=== PATIENT | male | born 1980 | race Caucasian/White ===

== ENCOUNTER → 2017-12-03 | Outpatient (CLI) | payer OTHER ==
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
== END ==
LOC: RAD 17:29
PROVIDERS: ATTEND Family Medicine
DX: M21.941 Unspecified acquired deformity of hand, right hand (principal); Y93.89 Activity, other specified
CPT/HCPCS: 73130

== ENCOUNTER 2018-06-09 11:03 | Outpatient (RCR) | payer OTHER | END 2018-09-07 | disposition home or self-care (01) | LOC: LAB 11:03 | PROVIDERS: ATTEND Family Medicine | DX: Z30.8 Encounter for other contraceptive management (principal) | CPT/HCPCS: 89321 ==

== ENCOUNTER 2019-07-26 12:32 | Day surgery (SDC) | payer OTHER ==
[2019-07-26] VITALS (10 sets, daily range): BP systolic 127–142; BP diastolic 70–89
[~2019-07-26 12:32] MED LIST: NF-ESOM40C PO
[2019-07-26] MEDS ORDERED: LACTATED RINGERS 1,000 ML IV ONE (12:35)
[2019-07-26] MEDS ORDERED: LACTATED RINGERS 1,000 ML IV STA (12:40)
[2019-07-26] MEDS ORDERED: HURRICAINE EXT TUBE (BENZOCAINE) XX PRN (12:45)
--- NOTE | 2019-07-26 12:59 | Progress Note-Pre Operative ---
Pre-Operative Progress Note H&P Reviewed The H&P was reviewed, patient examined and no changes noted. Date Seen by Provider: Jul 26, 2019 Time Seen by Provider: 12:55 Date H&P Reviewed: Jul 26, 2019 Time H&P Reviewed: 12:57 Pre-Operative Diagnosis: epigastric abdominal pain, dysphagia ROSI TRUJILLO DO Jul 26, 2019 12:59 POS
[2019-07-26] MEDS ORDERED: MIDAZOLAM 2 MG/2 ML (VERSED) VIAL ONE (13:11)
[2019-07-26] MEDS ORDERED: PROPOFOL INJECTION 50 ML IV ONE (13:11)
--- NOTE | 2019-07-26 13:53 | Progress Note-Post Operative ---
Post-Operative Progess Note Surgeon (s)/Recovery Room Nurse (s) Surgeon ROSI TRUJILLO DO Recovery Room Nurse: na Pre-Operative Diagnosis epigastric abdominal pain, dysphagia Post-Operative Diagnosis gastritis, hiatal hernia Procedure & Operative Findings Date of Procedure 07/26/19 Procedure Performed/Findings EGD with biopsies Anesthesia Type per housing liaison Estimated Blood Loss Estimated blood loss (mL): none Specimens/Packing Specimens Removed biopsies of antrum, GE junction ROSI TRUJILLO DO Jul 26, 2019 13:53 POS
[2019-07-26] MEDS ORDERED: PANT40TA2 PO (14:08)
--- NOTE | 2019-07-26 14:08 | Discharge Inst-Simple/Standard ---
Discharge Inst-Standard Discharge Medications New, Converted or Re-Newed RX: Transmitted to Pharmacy Patient Instructions/Follow Up Plan of Care/Instructions/FU: follow up with jennifer in 2 weeks Activity as Tolerated: Yes Discharge Diet: Regular Diet ROSI TRUJILLO DO Jul 26, 2019 14:08 POS
--- NOTE | 2019-07-26 14:53 | Anesthesia-General Post-Op ---
MAC Patient Condition Mental Status/LOC: Same as Preop Cardiovascular: Satisfactory Nausea/Vomiting: Absent Respiratory: Satisfactory Pain: Controlled Complications: Absent Post Op Complications Complications None Follow Up Care/Instructions Patient Instructions None needed. Anesthesiology Discharge Order Discharge Order Patient is doing well, no complaints, stable vital signs, no apparent adverse anesthesia problems. No complications reported per nursing. SCAR CAMARA CRNA Jul 26, 2019 14:53 POS
--- NOTE | 2019-07-26 22:30 | OPERATIVE REPORT ---
DATE OF SERVICE: 07/26/2019 PREOPERATIVE DIAGNOSES: Dysphagia and epigastric abdominal pain. POSTOPERATIVE DIAGNOSES: Hiatal hernia, gastritis. PROCEDURE: EGD with biopsies. SURGEON: Rosi Buitrago DO ANESTHESIA: Per WATER SOFTENER SERVICER AND INSTALLER. ESTIMATED BLOOD LOSS: None. COMPLICATIONS: None. INDICATIONS: The patient is a 38-year-old male with epigastric abdominal pain and dysphagia. He was started on Nexium, which did have some improvement. He is still having some symptoms; however, he understands risks and benefits of procedure and wished to proceed with procedure. Consent was signed in the chart. DESCRIPTION OF PROCEDURE: The patient was taken to the endoscopy suite, placed in the left lateral recumbent position. Timeout was performed. Scope was inserted in mouth, down the esophagus, stomach and into the duodenum without difficulty. There were no polyps, mass or ulcerations within the duodenum. Scope was slowly retracted back into the stomach where it had some erythematous changes consistent with gastritis. Biopsy of the antrum was obtained. Scope was retroflexed noting a hiatal hernia, no other pathology noted. Scope was returned to its normal position; slowly withdrawn to the distal esophagus, biopsy of GE junction was obtained. Scope was then slowly retracted back noting no other pathology. The patient tolerated procedure well without any complications, taken to recovery room in stable condition. RECOMMENDATIONS: The patient will follow up in the office in two to three weeks to discuss pathology results. We will change Nexium to Protonix to see if any further improvement. Any change in condition, she should be reevaluated at that time, otherwise follow up as scheduled appointment. Further recommendations pending pathology results. Job ID: [id number] DocumentID: [id number] Dictated Date: 07/26/2019 14:09:52 Stump Shooter Date: 07/26/2019 22:28:40 Dictated By: ROSI BUITRAGO DO
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
--- OUTSIDE RECORDS SUMMARY | 2019-08-20 18:43 | XMS REPORT ---
Author Author Eric Braden [facility] Address [address] [place], [place] [id number] Care Team Providers Care Finished Stock Inspector Name Role Phone Sherice Braden PCP Unavailable Allergies and Adverse Reactions Name Reaction Notes No known drug allergy Plan of Treatment Not available. Medications Not available. Problem List Not available. Vital Signs Date Time BP-Sys(mm[Hg] BP-Milady(mm[Hg]) HR(bpm) RR(rpm) Temp WT HT HC BMI BSA BMI Percentile O2 Sat(%) 03/26/2017 8:19:00 AM 121 mmHg 66 mmHg 57 bpm 18 rpm 97.3 F 189.5 lbs 70 in 27.19 kg/m2 2.06 m2 98 % Social History Name Description Comments Alcohol Light Tobacco Never smoker History of Procedures Date Ordered Description Order Status 03/26/2017 8:36 AM URINALYSIS AUTO W/O SCOPE Reviewed Results Summary Date and Description Results 03/26/2017 8:36 AM Clarity Ur clear Color Ur ye llow Glucose Ur-sCnc neg Bilirub Ur Ql Strip neg Ketones Ur Ql Strip neg Sp Gr Ur Qn 1.005 Hgb Ur Ql Strip neg pH Ur-LsCnc 6.0 Prot Ur Ql Strip neg Urobilinogen Ur-mCnc 0.2eu/dl Nitrite Ur Ql Strip neg WBC Est Ur Ql Strip neg History Of Immunizations Not available. 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
== END 2019-07-26 14:40 | disposition home or self-care (01) ==
LOC: ENDO 12:32
PROVIDERS: ATTEND Surgery
DX: K29.70 Gastritis, unspecified, without bleeding (principal); K20.9 Esophagitis, unspecified; K44.9 Diaphragmatic hernia without obstruction or gangrene; R13.10 Dysphagia, unspecified; Z79.899 Other long term (current) drug therapy; Z98.52 Vasectomy status; Z90.89 Acquired absence of other organs; Z80.9 Family history of malignant neoplasm, unspecified; Z82.49 Family history of ischemic heart disease and other diseases of the circulatory system
CPT/HCPCS: 88305

== ENCOUNTER 2020-01-17 09:06 | Outpatient (RCR) | payer OTHER ==
[~2020-01-17] VITALS: Ht 177 cm; Wt 86.3 kg
[~2020-01-17 09:06] MED LIST changes: +PANT40TA2 PO
== END 2020-01-17 15:48 | disposition home or self-care (01) ==
LOC: PREOP 09:06
PROVIDERS: ATTEND Podiatrist Foot & Ankle Surgery
DX: Z01.818 Encounter for other preprocedural examination (principal); Z11.59 Encounter for screening for other viral diseases
CPT/HCPCS: 87635

== ENCOUNTER 2020-02-05 10:52 | Emergency (ER) | payer OTHER ==
[~2020-02-05] VITALS: Ht 177.8 cm; Wt 89.0 kg
[~2020-02-05 10:52] MED LIST changes: +CEPH500C PO; +HYDR-83 PO
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
--- NOTE | 2020-02-05 12:27 | ED Lower Extremity ---
General Chief Complaint: Lower Extremity Stated Complaint: POST OP/R LEG AND FOOT DISCOLORATION/PAIN Nursing Triage Note: AMB TO ROOM WITH CRUTCHES HAD FOOT SURG BY DR REYNOSO 2 WEEKS AGO CHANGED HIS DRESSNG ON THURSDAY PLACED COBAN OVER DERSSING. LAST NIGHT FOOT AND LEG STARTED TO FEEL COOL AND WAS DISCOLORED UP LEG. REPORTS TOOK COBAN OFF AND COLOR RETURNED TO LEG. LEG CON'T TO FEEL COOL. ON ADMIT NO DISCOLORATION LEG COOL TO TOUCH BUT GOOD SENSATION Nursing Sepsis Screen: No Definite Risk Source: patient Exam Limitations: no limitations History of Present Illness Date Seen by Provider: Feb 05, 2020 Time Seen by Provider: 11:57 Initial Comments Here with report of right calf pain and cramping and right foot numbness concerns for blood clots. Had surgery on his foot first metatarsal area distally about 2 weeks ago. Had sutures out a few days ago and had a dressing in place with Coban. The Coban may have been on a little tight. When he got up this morning and went to shower he noted that the foot was dark red/purple. After he remove the Coban and and dressing, but returned to normal color. Has had Cramping and is worried about blood clots after surgery. No significant swelling of the right calf noted. Denies fever or chills. Denies other concerns. Onset: this morning Severity: moderate Pain/Injury Location: right leg, right foot Method of Injury: other (status post surgery) Modifying Factors: Improves With Immobilization, Improves With Movement, Improves With Rest Allergies and Home Medications Allergies Coded Allergies: No Known Drug Allergies (Verified , 01/12/20) Home Medications Cephalexin 500 Mg Capsule, 1 CAP PO TID Prescribed by: JAIMEE REYNOSO on 01/20/20 1031 Hydrocodone/Acetaminophen 1 Each Tablet, 1 EACH PO Q4H PRN for PAIN-MODERATE (5- 7) Prescribed by: JAIMEE REYNOSO on 01/20/20 1031 Pantoprazole Sodium 40 Mg Tablet., 40 MG PO DAILY Prescribed by: ROSI TRUJILLO on 07/26/19 6578 Patient Home Medication List Home Medication List Reviewed: Yes Review of Systems Constitutional: see HPI; No chills, No fever Respiratory: no symptoms reported Cardiovascular: no symptoms reported Musculoskeletal: see HPI, muscle pain, muscle stiffness, muscle cramps Skin: change in color, lesions (postoperative lesion to the bottom of the foot at the MTP area) Psychiatric/Neurological: Paresthesia, Tingling Past Dasnzlk-Uieqyi-Vjzfxy Hx Past Med/Social Hx: Reviewed Nursing Past Med/Soc Hx Patient Social History Alcohol Use: Occasionally Uses Number of Drinks Today: GG Alcohol Beverage of Choice: Beer, Whiskey Recreational Drug Use: No Smoking Status: Never a Smoker Former Smoker, Quit: January 12, 2000 2nd Hand Smoke Exposure: No Recent Foreign Travel: No Contact w/Someone Who Travel: No Recent Infectious Disease Expo: No Recent Hopitalizations: No Immunizations Up To Date PED Vaccines UTD: No Date of Pneumonia Vaccine: May 31, 2018 Date of Influenza Vaccine: May 24, 2019 Seasonal Allergies Seasonal Allergies: Yes Past Medical History Surgeries: Yes (bilat ing hernia, cyst from neck, left knee scope x2, R elbow scope, SEPTOP) Adenoidectomy, Appendectomy, Tonsillectomy, Vasectomy Respiratory: No Currently Using CPAP: No Currently Using BIPAP: No Cardiac: No Neurological: No Sexually Transmitted Disease: No HIV/AIDS: No Genitourinary: No Gastrointestinal: Yes Gastroesophageal Reflux Musculoskeletal: No Endocrine: No HEENT: Yes (GLASSES/CONTACTS) Cancer: No Psychosocial: No Integumentary: No Blood Disorders: No Adverse Reaction/Blood Tranf: No (N/A) Family Medical History Reviewed Nursing Family Hx Physical Exam Vital Signs Vital Signs - First Documented 02/05/20 11:41 Temp 36.7 Pulse 73 Resp 18 B/P (MAP) 143/87 (105) Pulse Ox 97 O2 Delivery Room Air Capillary Refill : Less Than 3 Seconds Height, Weight, BMI Height: '" Weight: lbs. oz. kg; 28.00 BMI Method: General Appearance: WD/WN, no apparent distress Cardiovascular: regular rate, rhythm, no murmur Respiratory: lungs clear, normal breath sounds Gastrointestinal: non tender, soft Legs: bilateral leg non-tender, bilateral leg normal range of motion, bilateral leg other (no difference in size between the right and left calf. Overall soft bilateral.) Feet: right foot other (postoperative wound to the bottom of the right foot at the MTP. Cap refill less than 3 seconds to all toes of the right foot. No signs of infection.) Neurologic/Psychiatric: alert, oriented x 3 Skin: normal color, warm/dry Progress/Results/Core Measures Results/Orders Lab Results Laboratory Tests Test 02/05/20 12:25 Range/Units White Blood Count 6.7 4.3-11.0 10^3/uL Red Blood Count 4.78 4.35-5.85 10^6/uL Hemoglobin 14.6 13.3-17.7 G/DL Hematocrit 42 40-54 % Mean Corpuscular Volume 87 80-99 FL Mean Corpuscular Hemoglobin 31 25-34 PG Mean Corpuscular Hemoglobin Concent 35 32-36 G/DL Red Cell Distribution Width 12.6 10.0-14.5 % Platelet Count 154 130-400 10^3/uL Mean Platelet Volume 10.3 7.4-10.4 FL Neutrophils (%) (Auto) 53 42-75 % Lymphocytes (%) (Auto) 30 12-44 % Monocytes (%) (Auto) 13 H 0-12 % Eosinophils (%) (Auto) 4 0-10 % Basophils (%) (Auto) 0 0-10 % Neutrophils # (Auto) 3.6 1.8-7.8 X 10^3 Lymphocytes # (Auto) 2.0 1.0-4.0 X 10^3 Monocytes # (Auto) 0.9 0.0-1.0 X 10^3 Eosinophils # (Auto) 0.3 0.0-0.3 10^3/uL Basophils # (Auto) 0.0 0.0-0.1 10^3/uL Sodium Level 137 135-145 MMOL/L Potassium Level 4.3 3.6-5.0 MMOL/L Chloride Level 104 98-107 MMOL/L Carbon Dioxide Level 20 L 21-32 MMOL/L Anion Gap 13 5-14 MMOL/L Blood Urea Nitrogen 17 7-18 MG/DL Creatinine 1.08 0.60-1.30 MG/DL Estimat Glomerular Filtration Rate > 60 BUN/Creatinine Ratio 16 Glucose Level 86 70-105 MG/DL Calcium Level 9.7 8.5-10.1 MG/DL Corrected Calcium 8.5-10.1 MG/DL Total Bilirubin 0.7 0.1-1.0 MG/DL Aspartate Amino Transf (AST/SGOT) 48 H 5-34 U/L Alanine Aminotransferase (ALT/SGPT) 102 H 0-55 U/L Alkaline Phosphatase 48 40-136 U/L Total Protein 7.2 6.4-8.2 GM/DL Albumin 4.7 H 3.2-4.5 GM/DL My Orders Orders - ANILA BROWN MD Cbc With Automated Diff (02/05/20 12:03) Comprehensive Metabolic Panel (02/05/20 12:03) Enoxaparin Injection (Lovenox Injection) (02/05/20 12:30) Vital Signs/I&O 02/05/20 11:41 Temp 36.7 Pulse 73 Resp 18 B/P (MAP) 143/87 (105) Pulse Ox 97 O2 Delivery Room Air Blood Pressure Mean: 105 Progress Progress Note : Progress Note Seen and evaluated. We will check basic labs to evaluate for infection and kidney function. Ultrasound not available today so we will order that first worsening tomorrow. We did discuss risk and benefits of anticoagulation given risk of DVT status post surgery. He would like to initiate anticoagulation pending ultrasound. Ultrasound right lower extremity ordered for tomorrow. We will give single dose of Lovenox 1.5 mg/kg subcutaneous if kidney function is okay. Monitor patient. 1312: Renal function is normal. Lovenox 130 mg subcutaneous ordered. Patient will get outpatient ultrasound tomorrow. Discharged home with return precautions. Patient verbalize understanding instructions and agreement with plan. Departure Impression Primary Impression: Right calf pain Disposition: 01 HOME, SELF-CARE Condition: Stable Departure-Patient Inst. Decision time for Depature: 13:14 Referrals: ENRIQUE ROBERTS MD (PCP/Family) Primary Care Physician Patient Instructions: Deep Vein Thrombosis (Blood Clots in the Legs) (DC) Add. Discharge Instructions: All discharge instructions reviewed with patient and/or family. Voiced understanding. Follow-up tomorrow for ultrasound. He will return to the hospital to the outpatient registration and sign in for ultrasound first thing in the morning. Outpatient registration should be open at 7:30 in the morning and ultrasound of 8 AM. You should be here at sometime between 7:30 and 8 AM to register for the ultrasound first thing in the morning. Those results will be given to the ER d jade salesperson children's shoes and he will be called if you need further treatment. You should also follow up with Dr. Reynoso for recheck and further evaluation. Return for worse pain, swelling, weakness, breathing problems or other concerns as needed. Copy Copies To 1: EDGARDO,ANILA HAHN DPM, MD Feb 05, 2020 12:27
[2020-02-05] MEDS ORDERED: ENOXAPARIN 60 MG/0.6 ML (LOVENOX) SYR SC ONE (12:30)
[2020-02-05 12:34] LABS: BASOPHILS % (AUTO) 0 % (0-10); EOSINOPHILS # (AUTO) 0.3 10^3/uL (0.0-0.3); EOSINOPHILS % (AUTO) 4 % (0-10); HEMATOCRIT 42 % (40-54); HEMOGLOBIN 14.6 G/DL (13.3-17.7); LYMPHOCYTES % (AUTO) 30 % (12-44); MEAN CORPUSCULAR HEMOGLOBIN 31 PG (25-34); MEAN CORPUSCULAR HGB CONC 35 G/DL (32-36); MEAN CORPUSCULAR VOLUME 87 FL (80-99); MEAN PLATELET VOLUME 10.3 FL (7.4-10.4); MONOCYTES # (AUTO) 0.9 X 10^3 (0.0-1.0); MONOCYTES % (AUTO) 13 % (0-12); NEUTROPHILS # (AUTO) 3.6 X 10^3 (1.8-7.8); NEUTROPHILS % (AUTO) 53 % (42-75); PLATELET COUNT 154 10^3/uL (130-400); RED CELL DISTRIBUTION WIDTH 12.6 % (10.0-14.5); WHITE BLOOD COUNT 6.7 10^3/uL (4.3-11.0)
[2020-02-05 12:51] LABS: ALANINE AMINOTRANSFERASE 102 U/L (0-55); ALBUMIN 4.7 GM/DL (3.2-4.5); ALKALINE PHOSPHATASE 48 U/L (40-136); BILIRUBIN,TOTAL 0.7 MG/DL (0.1-1.0); BUN/CREATININE RATIO 16; CALCIUM 9.7 MG/DL (8.5-10.1); CARBON DIOXIDE 20 MMOL/L (21-32); CHLORIDE 104 MMOL/L (98-107); CREATININE SERUM 1.08 MG/DL (0.60-1.30); GFR ESTIMATED > 60; GLUCOSE 86 MG/DL (70-105); POTASSIUM 4.3 MMOL/L (3.6-5.0); SODIUM 137 MMOL/L (135-145); TOTAL PROTEIN 7.2 GM/DL (6.4-8.2)
[2020-02-05] MEDS ORDERED: ENOXAPARIN 300 MG/3 ML (LOVENOX) MULTI-DOSE VIAL SQ NR (13:13)
[2020-02-05 13:31] VITALS: BP 139/108
[2020-02-06] MEDS ORDERED: APIX5TAB PO (11:46)
[2020-02-06] MEDS ORDERED: HYDR-3870 PO (11:48)
== END 2020-02-05 13:31 | disposition home or self-care (01) ==
LOC: EDUNIT# 10:52 → ER 10:53
DX: M79.661 Pain in right lower leg (principal); K21.9 Gastro-esophageal reflux disease without esophagitis; Z98.890 Other specified postprocedural states; Z87.891 Personal history of nicotine dependence
CPT/HCPCS: 36415; 80053; 85025

== ENCOUNTER 2020-02-06 10:13 | Emergency (ER) | payer OTHER ==
[~2020-02-06] VITALS: Ht 177.8 cm; Wt 86.2 kg
[~2020-02-06 10:13] MED LIST changes: -APIX5TAB PO; -HYDR-3870 PO
--- NOTE | 2020-02-06 10:37 | ED Lower Extremity ---
General Chief Complaint: Lower Extremity Stated Complaint: R FOOT PAIN Source: patient Exam Limitations: no limitations History of Present Illness Date Seen by Provider: Feb 06, 2020 Time Seen by Provider: 10:32 Initial Comments To ER with right foot/lower leg pain. He was seen here yesterday for the same. At the end of December he had surgery on his right foot for a dislocated sesamoid bone. He been doing fine until yesterday when he awakened with swelling of the foot and leg. However he have the Coban wrap on very tightly for about 2-3 days. That was removed and the swelling went down overnight. He had a right lower extremity venous ultrasound today which did NOT show any evidence of clot DVT. However he still has a cool tingly sensation in the right foot. Onset: yesterday Severity: moderate Pain/Injury Location: right leg Method of Injury: unknown Allergies and Home Medications Allergies Coded Allergies: No Known Drug Allergies (Verified , 01/12/20) Home Medications Apixaban 5 Mg Tablet, 10 MG PO BID Prescribed by: MOSHE PADRON on 02/06/20 1146 Cephalexin 500 Mg Capsule, 1 CAP PO TID Prescribed by: JAIMEE REYNOSO on 01/20/20 1031 Hydrocodone/Acetaminophen 1 Each Tablet, 1 EACH PO Q4H PRN for PAIN-MODERATE (5- 7) Prescribed by: JAIMEE REYNOSO on 01/20/20 1031 Hydrocodone/Acetaminophen 1 Each Tablet, 1 EACH PO Q4-6HR PRN for PAIN-MODERATE Prescribed by: MOSHE PADRON on 02/06/20 1149 Pantoprazole Sodium 40 Mg Tablet.dr, 40 MG PO DAILY Prescribed by: ROSI TRUJILLO on 07/26/19 1408 Patient Home Medication List Home Medication List Reviewed: Yes Review of Systems Constitutional: see HPI EENTM: see HPI Respiratory: no symptoms reported Cardiovascular: no symptoms reported Genitourinary: no symptoms reported Musculoskeletal: no symptoms reported Skin: no symptoms reported Psychiatric/Neurological: No Symptoms Reported Past Nkuoqpp-Fmeogz-Qbjlwk Hx Patient Social History Alcohol Beverage of Choice: Beer, Whiskey Former Smoker, Quit: January 12, 2000 2nd Hand Smoke Exposure: No Recent Hopitalizations: No Immunizations Up To Date PED Vaccines UTD: No Date of Pneumonia Vaccine: May 31, 2018 Date of Influenza Vaccine: May 24, 2019 Seasonal Allergies Seasonal Allergies: Yes Past Medical History Surgeries: Yes (bilat ing hernia, cyst from neck, left knee scope x2, R elbow scope, SEPTOP) Adenoidectomy, Appendectomy, Tonsillectomy, Vasectomy Respiratory: No Currently Using CPAP: No Currently Using BIPAP: No Cardiac: No Neurological: No Sexually Transmitted Disease: No HIV/AIDS: No Genitourinary: No Gastrointestinal: Yes Gastroesophageal Reflux Musculoskeletal: No Endocrine: No HEENT: Yes (GLASSES/CONTACTS) Cancer: No Psychosocial: No Integumentary: No Blood Disorders: No Adverse Reaction/Blood Tranf: No (N/A) Physical Exam Vital Signs Capillary Refill : Height, Weight, BMI Height: '" Weight: lbs. oz. kg; 28.00 BMI Method: General Appearance: WD/WN, no apparent distress HEENT: PERRL/EOMI, normal ENT inspection Respiratory: no respiratory distress, no accessory muscle use Hips: bilateral hip non-tender, bilateral hip normal inspection, bilateral hip normal range of motion Legs: bilateral leg non-tender, bilateral leg normal inspection, bilateral leg normal range of motion, bilateral leg other (there is questionable discoloration is a bit of erythema to the right leg at this time. He does have a picture that he took at home with both feet [id number] and the right leg was certainly more purplish red than the left. However that is not the case currently. Both legs are cool to touch but with brisk capillary refill of the toes and a 2+ and strength dorsalis pedis pulse on each foot. The incision to the plantar surface of the forefoot on the right is intact with minimal bruising around it and no erythema or drainage. I do not find any alarming findings on clinical exam.) Knees: bilateral knee non-tender, bilateral knee normal inspection, bilateral knee normal range of motion Ankles: bilateral ankle non-tender, bilateral ankle normal inspection Feet: bilateral foot non-tender, bilateral foot normal inspection, bilateral foot normal range of motion Neurologic/Psychiatric: alert, normal mood/affect, oriented x 3 Skin: normal color, warm/dry Progress/Results/Core Measures Results/Orders My Orders Orders - MOSHE PADRON APRN Us Right Low Ext [id number] (02/06/20 10:38) Diagnostic Imaging Diagonstic Imaging: Ultrasound Comments [facility], [place] NAME: BECKY GRAY [facility] REC#: [id number] PT STATUS: REG CLI : 1980 PHYSICIAN: ANILA BROWN MD ADMIT DATE: 02/06/20/RAD Signed Date of Exam:02/06/20 US VENOUS LOWER EXT RT INDICATION: Two weeks postoperative foot surgery. Discoloration. Calf pain. TECHNIQUE: Grayscale with color-flow and Doppler waveform evaluation of the right lower extremity deep venous system. CORRELATION STUDY: None FINDINGS: Color and grayscale sonographic images demonstrate no intraluminal defect within the visualized portion of the common femoral, superficial femoral and/or popliteal veins to suggest thrombus formation. These vessels demonstrate normal response to compression and augmentation. The peroneal veins in the calf were not able to be visualized. No soft tissue fluid collection. IMPRESSION: 1. Negative for deep venous thrombosis of the right leg. Dictated by: Dictated on workstation # [id number] Dict: 02/06/20 1003 Trans: 02/06/20 1030 DO [id number] Interpreted by: SHEBA HOGAN DO Electronically signed by: SHEBA HOGAN DO 02/06/20 1030 Departure Communication (Admissions) Question a reflex sympathetic dystrophy ?? (potentially from the coban being so tight for 2-3 days) 1132-from arterial ultrasound, no evidence of clot within the arterial system on ultrasound which is supported by physical exam. However they were able to visualize the peroneal vein which was not able to be visualized on the venous ultrasound this morning. There is a clot within the peroneal vein. Impression Primary Impression: DVT (deep venous thrombosis) Additional Impression: Complex regional pain syndrome Disposition: HOME, SELF-CARE Condition: Stable Departure-Patient Inst. Decision time for Depature: 10:45 Referrals: ENRIQUE CANCHOLA MD (PCP/Family) Primary Care Physician Patient Instructions: Deep Vein Thrombosis (Blood Clots in the Legs) (DC) Add. Discharge Instructions: 1. You do have a small clot in the peroneal vein of your right lower leg. My suspicion is that there may also be a complex regional pain syndrome which is the result of a nerve injury possibly from the Coban wrap being on so tightly for 2-3 days. This can cause tingling and discoloration and coolness intermitten tly of the affected body part. Dr. Reynoso will see you today at 4 PM. Anticoagulants as directed. He will need to be on these for a couple of months, I have written you for 7 days worth, after that the dosage changes and Dr. Canchola or Dr. Reynoso can prescribe that for you All discharge instructions reviewed with patient and/or family. Voiced understanding. Scripts Hydrocodone/Acetaminophen (Lorcet 5-325 mg Tablet) 1 Each Tablet 1 EACH PO Q4-6HR PRN for PAIN-MODERATE MDD 10 for 7 Days, #10 TAB Prov: MOSHE PADRON APRN 02/06/20 Apixaban (Eliquis) 5 Mg Tablet 10 MG PO BID, #28 TAB Prov: MOSHE PADRON APRN 02/06/20 Copy Copies To 1: ENRIQUE CANCHOLA MD; JAIMEE REYNOSO DPM, PETER J APRN Feb 06, 2020 10:37
[2020-02-06] MEDS ORDERED: APIX5TAB PO (11:46)
[2020-02-06] MEDS ORDERED: HYDR-3870 PO (11:48)
--- NOTE | 2020-02-06 11:54 | Diagnostic Imaging Report ---
INDICATION: Right foot pain. EXAMINATION: Grayscale, color-flow and duplex Doppler evaluation of right lower extremity arterial system was performed. FINDINGS: There is triphasic waveforms within the right common femoral, superficial femoral and popliteal arteries. Biphasic waveforms within the posterior tibial artery is noted with triphasic waveforms in the dorsalis pedis. Velocities are normal. No high-grade stenosis or occlusion is identified. Note is made of a thrombus noted within peroneal veins of the calf. No fluid collections are identified. IMPRESSION: 1. Unremarkable right lower extremity arterial Doppler. 2. Peroneal vein thrombosis. Dictated by: Dictated on workstation # [id number]
[2020-02-06 12:00] VITALS: BP 146/92
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
== END 2020-02-06 12:00 | disposition home or self-care (01) ==
LOC: EDUNIT# 10:13 → ER 10:14
DX: I82.451 Acute embolism and thrombosis of right peroneal vein (principal); G90.521 Complex regional pain syndrome I of right lower limb; K21.9 Gastro-esophageal reflux disease without esophagitis; Z79.01 Long term (current) use of anticoagulants
CPT/HCPCS: 93926

== ENCOUNTER → 2020-02-06 | Outpatient (CLI) | payer OTHER ==
[~2020-02-06] MED LIST changes: +APIX5TAB PO; +HYDR-3870 PO
--- NOTE | 2020-02-06 10:32 | Diagnostic Imaging Report ---
INDICATION: Two weeks postoperative foot surgery. Discoloration. Calf pain. TECHNIQUE: Grayscale with color-flow and Doppler waveform evaluation of the right lower extremity deep venous system. CORRELATION STUDY: None FINDINGS: Color and grayscale sonographic images demonstrate no intraluminal defect within the visualized portion of the common femoral, superficial femoral and/or popliteal veins to suggest thrombus formation. These vessels demonstrate normal response to compression and augmentation. The peroneal veins in the calf were not able to be visualized. No soft tissue fluid collection. IMPRESSION: 1. Negative for deep venous thrombosis of the right leg. Dictated by: Dictated on workstation # [id number]
== END ==
LOC: RAD 07:57
PROVIDERS: ATTEND Emergency Medicine
DX: M79.661 Pain in right lower leg (principal); Z98.890 Other specified postprocedural states

== ENCOUNTER 2022-04-28 20:52 | Observation (INO) | payer OTHER ==
[~2022-04-28] VITALS: Ht 177.8 cm; Wt 89.5 kg
[~2022-04-28 20:52] MED LIST changes: +ACHD5005 PO; +APIX5TAB PO; +HYDR-3870 PO; -HYDR-83 PO
[2022-04-28 21:15] LABS: BASOPHILS % (AUTO) 0 % (0-10); EOSINOPHILS # (AUTO) 0.2 10^3/uL (0.0-0.3); EOSINOPHILS % (AUTO) 3 % (0-10); HEMATOCRIT 42 % (40-54); HEMOGLOBIN 15.4 g/dL (13.3-17.7); LYMPHOCYTES % (AUTO) 48 % (12-44); MEAN CORPUSCULAR HEMOGLOBIN 33 pg (25-34); MEAN CORPUSCULAR HGB CONC 37 g/dL (32-36); MEAN CORPUSCULAR VOLUME 89 fL (80-99); MEAN PLATELET VOLUME 10.3 fL (9.0-12.2); MONOCYTES # (AUTO) 0.7 10^3/uL (0.0-1.0); MONOCYTES % (AUTO) 8 % (0-12); NEUTROPHILS # (AUTO) 3.3 10^3/uL (1.8-7.8); NEUTROPHILS % (AUTO) 40 % (42-75); PLATELET COUNT 179 10^3/uL (130-400); WHITE BLOOD COUNT 8.2 10^3/uL (4.3-11.0)
[2022-04-28 21:23] LABS: CHLORIDE 102 MMOL/L (98-107); POTASSIUM 3.5 MMOL/L (3.6-5.0); SODIUM 141 MMOL/L (135-145)
[2022-04-28 21:24] LABS: CALCIUM 10.2 MG/DL (8.5-10.1); INR 0.9 (0.8-1.4); PROTHROMBIN TIME PATIENT 12.5 SEC (12.2-14.7)
[2022-04-28 21:25] LABS: GLUCOSE 152 MG/DL (70-105)
[2022-04-28 21:26] LABS: TOTAL PROTEIN 8.2 GM/DL (6.4-8.2)
[2022-04-28 21:27] LABS: BILIRUBIN,TOTAL 0.5 MG/DL (0.1-1.0); CARBON DIOXIDE 21 MMOL/L (21-32)
[2022-04-28 21:29] LABS: ALKALINE PHOSPHATASE 66 U/L (40-136); CREATININE SERUM 1.15 MG/DL (0.60-1.30); GFR ESTIMATED 81
[2022-04-28 21:30] LABS: BUN/CREATININE RATIO 14
--- NOTE | 2022-04-28 21:30 | ED Chest Pain ---
General Chief Complaint: Chest Pain Stated Complaint: CHEST PAIN, SOB Nursing Triage Note: PT AMB TO [facility] 3 WITH C/O CP X2 HOURS THAT HAS BEEN CONSTANT AND HE SAID HE IS FEELING PALPITATIONS AND INCREASED SOB. PT STATES HE WAS WATCHING TV WHEN IT CAME ON Source: patient Exam Limitations: no limitations History of Present Illness Date Seen by Provider: Apr 28, 2022 Time Seen by Provider: 20:59 Initial Comments This 41-year-old gentleman presents to the emergency room with fairly abrupt onset of chest tightness and pressure at approximately 1900. His significant ot her checked his blood pressure and noted a significant hypertension. Heart rate was also in the 90s at rest which is unusual for him. He felt palpitations at the time. He reports having multiple prior episodes of lesser intensity and brief duration over the past couple of months. This episode made him nervous because it was unrelenting. He was watching TV at the time. He did not identify any alleviating or exacerbating factors. Associated symptoms included palpitations, shakiness, shortness of air, and diaphoresis. He does admit to drinking hard liquor this holiday weekend including a half a bottle (1/5 liter) of tequila yesterday. He typically drinks about 2 days/week on weekends, and sometimes excessively. He has no known heart disease but does have untreated hypertension. Pain was 4/10 on arrival. He is a non-smoker. He reports family history of heart disease in his grandfather. His mother and father have hypertension. He denies any prior cardiac work-up. Allergies and Home Medications Allergies Coded Allergies: No Known Drug Allergies (Verified , 01/12/20) Patient Home Medication List Home Medication List Reviewed: Yes Apixaban (Eliquis) 5 Mg Tablet, 10 MG PO BID Prescribed by: MOSHE PADRON on 02/06/20 1146 Cephalexin (Cephalexin) 500 Mg Capsule, 1 CAP PO TID Prescribed by: JAIMEE REYNOSO on 01/20/20 1031 Hydrocodone/Acetaminophen (Hydrocodone-Acetamin 5-325 mg) 1 Each Tablet, 1 EACH PO Q4H PRN for PAIN-MODERATE (5-7) Prescribed by: JAIMEE REYNOSO on 01/20/20 1031 Hydrocodone/Acetaminophen (Lorcet 5-325 mg Tablet) 1 Each Tablet, 1 EACH PO Q4- 6HR PRN for PAIN-MODERATE Prescribed by: MOSHE PADRON on 02/06/20 1149 Pantoprazole Sodium (Protonix) 40 Mg Tablet.dr, 40 MG PO DAILY Prescribed by: ROSI TRUJILLO on 07/26/19 1408 Review of Systems Review of Systems Constitutional: see HPI, diaphoresis EENTM: No Symptoms Reported Respiratory: See HPI, SOA at Rest Cardiovascular: See HPI, Chest Pain, Palpitations Gastrointestinal: No Symptoms Reported Genitourinary: No Symptoms Reported Musculoskeletal: no symptoms reported Skin: no symptoms reported Psychiatric/Neurological: See HPI Endocrine: No Symptoms Reported Hematologic/Lymphatic: No Symptoms Reported Past Nyreypb-Avodsr-Cdtgwc Hx Patient Social History Tobacco Use?: No Use of E-Cig and/or Vaping dev: No Substance use?: No Alcohol Use?: Yes Alcohol type: Hard Liquor Alcohol Frequency: Couple times a week Pt feels they are or have been: No Immunizations Up To Date PED Vaccines UTD: No Influenza Vaccine Up-to-Date: Yes; Up-to-Date Seasonal Allergies Seasonal Allergies: Yes Past Medical History Surgery/Hospitalization HX: HTN KNEE X2, ANKLE, ELBOW, NASAL, APPY, T&A, RHINOPLASTY Surgeries: Yes (bilat ing hernia, cyst from neck, left knee scope x2, R elbow scope, SEPTOP) Adenoidectomy, Appendectomy, Orthopedic, Tonsillectomy, Vasectomy Respiratory: No Currently Using CPAP: No Currently Using BIPAP: No Cardiac: Yes Hypertension Neurological: No Sexually Transmitted Disease: No HIV/AIDS: No Genitourinary: No Gastrointestinal: Yes Gastroesophageal Reflux Musculoskeletal: No Endocrine: No HEENT: Yes (GLASSES/CONTACTS) Cancer: No Psychosocial: No Integumentary: No Blood Disorders: No Adverse Reaction/Blood Tranf: No (N/A) Physical Exam Vital Signs Vital Signs - First Documented 04/28/22 20:55 Temp 36.7 Pulse 83 Resp 18 B/P (MAP) 163/119 (134) Capillary Refill : Height, Weight, BMI Height: '" Weight: lbs. oz. 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 Skin: Normal Color, Warm/Dry Progress/Results/Core Measures Results/Orders Lab Results Laboratory Tests Test 04/28/22 20:58 04/28/22 21:47 04/28/22 23:35 Range/Units White Blood Count 8.2 4.3-11.0 10^3/uL Red Blood Count 4.72 4.30-5.52 10^6/uL Hemoglobin 15.4 13.3-17.7 g/dL Hematocrit 42 40-54 % Mean Corpuscular Volume 89 80-99 fL Mean Corpuscular Hemoglobin 33 25-34 pg Mean Corpuscular Hemoglobin Concent 37 H 32-36 g/dL Red Cell Distribution Width 12.4 10.0-14.5 % Platelet Count 179 130-400 10^3/uL Mean Platelet Volume 10.3 9.0-12.2 fL Immature Granulocyte % (Auto) 1 % Neutrophils (%) (Auto) 40 L 42-75 % Lymphocytes (%) (Auto) 48 H 12-44 % Monocytes (%) (Auto) 8 0-12 % Eosinophils (%) (Auto) 3 0-10 % Basophils (%) (Auto) 0 0-10 % Neutrophils # (Auto) 3.3 1.8-7.8 10^3/uL Lymphocytes # (Auto) 4.0 1.0-4.0 10^3/uL Monocytes # (Auto) 0.7 0.0-1.0 10^3/uL Eosinophils # (Auto) 0.2 0.0-0.3 10^3/uL Basophils # (Auto) 0.0 0.0-0.1 10^3/uL Immature Granulocyte # (Auto) 0.0 0.0-0.1 10^3/uL Prothrombin Time 12.5 12.2-14.7 SEC INR Comment 0.9 0.8-1.4 Activated Partial Thromboplast Time 28 24-35 SEC Sodium Level 141 135-145 MMOL/L Potassium Level 3.5 L 3.6-5.0 MMOL/L Chloride Level 102 98-107 MMOL/L Carbon Dioxide Level 21 21-32 MMOL/L Anion Gap 18 H 5-14 MMOL/L Blood Urea Nitrogen 16 7-18 MG/DL Creatinine 1.15 0.60-1.30 MG/DL Estimat Glomerular Filtration Rate 81 BUN/Creatinine Ratio 14 Glucose Level 152 H 70-105 MG/DL Calcium Level 10.2 H 8.5-10.1 MG/DL Corrected Calcium 8.5-10.1 MG/DL Magnesium Level 1.5 L 1.6-2.4 MG/DL Total Bilirubin 0.5 0.1-1.0 MG/DL Aspartate Amino Transf (AST/SGOT) 43 H 5-34 U/L Alanine Aminotransferase (ALT/SGPT) 68 H 0-55 U/L Alkaline Phosphatase 66 40-136 U/L Myoglobin 74.7 10.0-92.0 NG/ML Troponin I < 0.028 < 0.028 <0.028 NG/ML Total Protein 8.2 6.4-8.2 GM/DL Albumin 5.0 H 3.2-4.5 GM/DL Influenza Type A (RT-PCR) Not Detected Not Detecte Influenza Type B (RT-PCR) Not Detected Not Detecte SARS-CoV-2 RNA (RT-PCR) Not Detected Not Detecte My Orders Orders - AINSLEY LEBRON MD Ekg Tracing (04/28/22 20:54) Cbc With Automated Diff (04/28/22 21:09) Magnesium (04/28/22 21:09) Chest 1 View, Ap/Pa Only (04/28/22 21:09) Comprehensive Metabolic Panel (04/28/22 21:09) Myoglobin Serum (04/28/22 21:09) Protime With Inr (04/28/22 21:09) Partial Thromboplastin Time (04/28/22 21:09) O2 (04/28/22 21:09) Monitor-Rhythm Ecg Trace Only (04/28/22 21:09) Lipid Panel (04/29/22 06:00) Ed Iv/Invasive Line Start (04/28/22 21:09) Troponin I [place] (04/28/22 21:09) Covid 19 Inhouse Test (04/28/22 21:09) Influenza A And B By Pcr (04/28/22 21:09) Nitroglycerin 0.4 Mg Btl 25's (Nitrostat (04/28/22 21:45) Aspirin Chewable Tablet (Baby Aspirin Ch (04/28/22 21:45) Troponin I [place] (04/28/22 23:00) Magnesium 1 Gm/100 Ml Ivpb (Magnesium Garcia (04/29/22 00:30) Enoxaparin Injection (Lovenox Injection) (04/29/22 00:45) Pantoprazole Injection (Protonix Injecti (04/29/22 00:45) Metoprolol Succinate (Xl) Tab (Toprol Xl (04/29/22 00:45) Medications Given in ED Current Medications Medications Dose Ordered Sig/Thong Route Start Time Stop Time Status Last Admin Dose Admin Aspirin 324 mg ONCE ONCE PO 04/28/22 21:45 04/28/22 21:46 DC 04/28/22 21:45 324 MG Enoxaparin Sodium 90 mg ONCE ONCE SC 04/29/22 00:45 04/29/22 00:46 DC 04/29/22 00:48 90 MG Magnesium Sulfate/ Dextrose 100 ml @ 100 mls/hr ONCE ONCE IV 04/29/22 00:30 04/29/22 01:29 04/29/22 00:48 100 MLS/HR Nitroglycerin 0.4 mg UD PRN SL 04/28/22 21:45 04/28/22 22:20 DC 04/28/22 22:20 0.4 MG Pantoprazole 40 mg ONCE ONCE IV 04/29/22 00:45 04/29/22 00:46 DC 04/29/22 00:48 40 MG Vital Signs/I&O 04/28/22 20:55 Temp 36.7 Pulse 83 Resp 18 B/P (MAP) 163/119 (134) Blood Pressure Mean: 134 Progress Progress Note : Time: 01:03 Progress Note Patient had progressive improvement of his chest pain with each dose of nitroglycerin x3. He had a minimal lingering chest pain of 1/10 after nitroglycerin. Aspirin was also administered. Work-up was unremarkable except for hypomagnesemia which is being treated with an IV dose of magnesium sulfate 1 g. The nature of his chest pain and significant response to nitroglycerin was concerning for possible angina. Patient was nervous about the situation and was agreeable to admission for observation and further cardiac evaluation. Dr. Kathleen was consulted and requested Lovenox, aspirin, and Toprol-XL, all of which were ordered for the emergency room. Additionally he was given Protonix 40 mg IV. Patient desires full CODE STATUS. Dr. Alves accepted the admission. Initial ECG Impression Date: Apr 28, 2022 Initial ECG Impression Time: 20:59 Initial ECG Rate: 68 Comment Sinus arrhythmia with no ST elevation or depression. Automated read notes and intraventricular conduction delay. No axis deviation. Diagnostic Imaging Diagonstic Imaging: Xray Plain Films/CT/US/NM/MRI: chest Comments Chest x-ray viewed by me and report reviewed. See report below: NAME: BECKY GRAY [facility] REC#: [id number] PT STATUS: REG ER : 1980 PHYSICIAN: AINSLEY LEBRON MD ADMIT DATE: 04/28/22/ER Signed Date of Exam:04/28/22 CHEST 1 VIEW, AP/PA ONLY CLINICAL INDICATION: Patient with chest pain. EXAM: Portable chest x-ray upright view. COMPARISON: None. FINDINGS: Lungs/pleura: Lungs are clear. There is no pneumothorax. There is no pleural effusion. Mediastinum: Unremarkable. Pulmonary vasculature: Unremarkable. Heart: Unremarkable. Bones/extrathoracic soft tissue: Unremarkable. IMPRESSION: There is no radiographic evidence of acute cardiopulmonary process. Dictated by: Dictated on workstation # [id number] Dict: 04/28/223 Trans: 04/28/222327 [facility] [id number] Interpreted by: LANETTE CAMARILLO MD Electronically signed by: LANETTE CAMARILLO MD 04/28/228 Departure Communication (Admissions) Time/Spoke to Admitting Phy: 00:35 Dr. Alves Time/Spoke to Consulting Phy: 00:30 Dr. Kathleen Impression Primary Impression: Chest pain Qualified Codes: R07.9 - Chest pain, unspecified Additional Impressions: Hypertension Qualified Codes: I10 - Essential (primary) hypertension Palpitations Hypomagnesemia Disposition: ADMITTED INPATIENT Condition: Improved Admissions Decision to Admit Reason: Admit from ER (General) Decision to Admit/Date: Apr 29, 2022 Time/Decision to Admit Time: 00:30 Departure-Patient Inst. Referrals: ENRIQUE ROBERTS MD (PCP/Family) Primary Care Physician Copy Copies To 1: KANCHAN RODRIGUEZ MD, JOSHUA T MD Apr 28, 2022 21:30
[2022-04-28 21:32] LABS: ALANINE AMINOTRANSFERASE 68 U/L (0-55); MAGNESIUM 1.5 MG/DL (1.6-2.4)
[2022-04-28] MEDS: NITROGLYCERIN 0.4 MG SL TABS BTL 25'S SL PRN ×3 (21:45→22:20)
[2022-04-28] MEDS ORDERED: ASPIRIN 81 MG CHEW (CHILDREN'S ASA) PO ONE (21:45)
--- NOTE | 2022-04-28 22:19 | Diagnostic Imaging Report ---
CLINICAL INDICATION: Patient with chest pain. EXAM: Portable chest x-ray upright view. COMPARISON: None. FINDINGS: Lungs/pleura: Lungs are clear. There is no pneumothorax. There is no pleural effusion. Mediastinum: Unremarkable. Pulmonary vasculature: Unremarkable. Heart: Unremarkable. Bones/extrathoracic soft tissue: Unremarkable. IMPRESSION: There is no radiographic evidence of acute cardiopulmonary process. Dictated by: Dictated on workstation # [id number]
[2022-04-29] VITALS (19 sets, daily range): BP systolic 119–153; BP diastolic 78–109
[2022-04-29] MEDS ORDERED: MAGNESIUM 1 GM/100 ML IVPB 100 ML IV ONE (00:30)
[2022-04-29] MEDS ORDERED: meTOproloL SUCCINATE 50 MG (TOPROL XL) TAB PO SCH (00:45)
[2022-04-29] MEDS ORDERED: ENOXAPARIN 100 MG/1 ML (LOVENOX) SYR SC ONE (00:45)
[2022-04-29] MEDS ORDERED: PANTOPRAZOLE 40 MG (PROTONIX) VIAL IV ONE (00:45)
[2022-04-29] MEDS ORDERED: morphine INJ 4 MG/ML 1 ML (VIAL/SYRINGE) IV PRN (02:00)
[2022-04-29] MEDS ORDERED: NS IV 1000 ML 1,000 ML IV SCH ×2 (02:00→13:15)
[2022-04-29] MEDS ORDERED: ONDANSETRON 4 MG/2 ML (SDV) Z0FRAN IVP PRN (02:00)
[2022-04-29] MEDS ORDERED: NITROGLYCERIN 0.4 MG SL TABS BTL 25'S SL PRN (02:00)
[2022-04-29 05:45] LABS: TRIGLYCERIDES 464 MG/DL (<150)
[2022-04-29 05:50] LABS: CHOLESTEROL 176 MG/DL (< 200); HDL CHOLESTEROL 27 MG/DL (40-60)
[2022-04-29] MEDS: PANTOPRAZOLE 40 MG (PROTONIX) VIAL IV SCH (08:54)
[2022-04-29] MEDS: ASPIRIN E.C. 81 MG (ECOTRIN) TAB PO SCH (08:55)
[2022-04-29] MEDS: meTOproloL SUCCINATE 50 MG (TOPROL XL) TAB PO SCH (08:55)
--- NOTE | 2022-04-29 08:55 | Consultation-Cardiology ---
HPI-Cardiology Cardiology Consultation: Date of Consultation 04/29/22 Time Seen by a Provider: 08:30 Date of Admission 04-28-22 Attending Physician Araceli Canchola MD Admitting Physician Admitting Physician: Jesus Alberto Alves MD Attending Physician: Jesus Alberto Alves MD Consulting Physician Soren Kathleen MD HPI: Chief Complaint: Chest pain Mr. Falcon is a 41 yr old male admitted to [facility] from the ED with c/o CP. He reports he has had episodes of mid-sternal chest pressure, squeezing without radiation for the last several months. Typically the episodes last 20-30 minutes. It is a constant discomfort that gradually eases. Episodes occur at rest. No associated symptoms. Last night he was lying in bed when he developed chest pain as before, but reports it lasted for several hours; he is reporting mild continued discomfort this morning. Activity does not make it any worse. He states the episode last night he had diaphoresis and SOB, He reports his signif other checked his BP and noted it was high as well as his pulse being high (90's). He denies any n/v/d. No c/o fever or chills. No c/o syncope or near syncope. No LE swelling. He states he drinks heavily 2-3 times a week. He does NOT smoke. Review of Systems-Cardiology Review of Systems Constitutional: No chills, No fever, No malaise Eyes: No vision change Ears/Nose/Throat: No epistaxis, No recent hearing loss Respiratory: As described under HPI Cardiovascular: As described under HPI Gastrointestinal: As described under HPI Genitourinary: No dysuria, No hematuria Skin: No rash on exposed areas, No ulcerations on exposed areas Psychiatric/Neurological: No anxiety, No depression, No seizure, No focal weakness, No syncope Hematologic: No bleeding abnormalities YTG-Tommob-Czwhyp Hx Patient Social History Smoking Status: Never a Smoker 2nd Hand Smoke Exposure: No Have you traveled recently?: No Alcohol Use?: Yes Pt feels they are or have been: No Tobacco type used: Cigarettes Immunizations Up To Date Date of Pneumonia Vaccine: May 31, 2018 Date of Influenza Vaccine: May 24, 2019 Past Medical History PMH As described under Assessment. Family Medical History Family Medical History: He reports his mother has an "arrhythmia" which was dx in her 50's. He reports his father has HTN and h/o CVA. Allergies and Home Medications Allergies Coded Allergies: No Known Drug Allergies (Verified , 01/12/20) Patient Home Medication List Esomeprazole Magnesium (Esomeprazole Magnesium) 20 Mg Capsule.dr, 20 MG PO DAILY, (Reported) Entered as Reported by: ANDRES POLLARD on 04/29/221428 Last Action: Converted Ibuprofen (Ibuprofen) 200 Mg Tablet, 600 MG PO Q6H PRN for PAIN-MILD (1-4), (Reported) Entered as Reported by: ANDRES POLLARD on 04/29/221428 Last Action: Held Valacyclovir HCl (Valacyclovir) 1,000 Mg Tablet, 1,000 MG PO Q48H, (Reported) Entered as Reported by: ANDRES POLLARD on 04/29/221428 Last Action: Held Discontinued Medications Apixaban (Eliquis) 5 Mg Tablet, 10 MG PO BID Discontinued Reason: No Longer Taking Prescribed by: MOSHE PADRON on 02/06/20 1146 Last Action: Discontinued Cephalexin (Cephalexin) 500 Mg Capsule, 1 CAP PO TID Discontinued Reason: No Longer Taking Prescribed by: JAIMEE REYNOSO on 01/20/20 1031 Last Action: Discontinued Hydrocodone/Acetaminophen (Hydrocodone-Acetamin 5-325 mg) 1 Each Tablet, 1 EACH PO Q4H PRN for PAIN-MODERATE (5-7) Discontinued Reason: No Longer Taking Prescribed by: JAIMEE REYNOSO on 01/20/20 1031 Last Action: Discontinued Hydrocodone/Acetaminophen (Lorcet 5-325 mg Tablet) 1 Each Tablet, 1 EACH PO Q4- 6HR PRN for PAIN-MODERATE Discontinued Reason: No Longer Taking Prescribed by: MOSHE PADRON on 02/06/20 1149 Last Action: Discontinued Pantoprazole Sodium (Protonix) 40 Mg Tablet., 40 MG PO DAILY Discontinued Reason: No Longer Taking Prescribed by: ROSI TRUJILLO on 07/26/19 1408 Last Action: Discontinued Physical Exam-Cardiology Physical Exam Vital Signs/I&O 04/29/22 04/29/22 04/29/22 04/29/22 05:00 06:00 07:21 07:55 Temp 36.4 Pulse 66 71 65 59 Resp 20 20 18 B/P (MAP) 141/98 (112) 124/81 (95) 130/90 (103) Pulse Ox 95 98 96 O2 Delivery Room Air Room Air Room Air 04/29/22 04/29/22 04/29/22 04/29/22 08:00 11:22 13:44 13:45 Temp 36.6 Pulse 56 53 60 Resp 18 B/P (MAP) 134/88 (103) 120/78 (92) Pulse Ox 98 O2 Delivery Room Air Room Air 04/29/22 04/29/22 04/29/22 14:00 14:15 14:30 Pulse 55 58 53 B/P (MAP) 124/85 (98) 133/87 (102) 119/85 (96) Capillary Refill : Constitutional: AAO x 3, well-developed, well-nourished HEENT: PERRL, hearing is well preserved, oral hygience is good Neck: No carotid bruit; carotid pulses are 2 + bilaterally Respiratory: No accessory muscle use, No respiratory distress; chest expansion is symmetric, chest is bilaterally symmetric, lungs clear to auscultation Cardiovascular: regular rate-rhythm, S1 and S2 Gastrointestinal: No tender; soft, round, audible bowel sounds Extremities: no lower extremity edema bilateral Neurologic/Psychiatric: grossly intact Skin: No rash on exposed areas, No ulcerations on exposed areas Data Review Labs Laboratory Tests 04/28/22 20:58: White Blood Count 8.2, Red Blood Count 4.72, Hemoglobin 15.4, Hematocrit 42, Mean Corpuscular Volume 89, Mean Corpuscular Hemoglobin 33, Mean Corpuscular Hemoglobin Concent 37H, Red Cell Distribution Width 12.4, Platelet Count 179, Mean Platelet Volume 10.3, Immature Granulocyte % (Auto) 1, Neutrophils (%) (Auto) 40L, Lymphocytes (%) (Auto) 48H, Monocytes (%) (Auto) 8, Eosinophils (%) (Auto) 3, Basophils (%) (Auto) 0, Neutrophils # (Auto) 3.3, Lymphocytes # (Auto) 4.0, Monocytes # (Auto) 0.7, Eosinophils # (Auto) 0.2, Basophils # (Auto) 0.0, Immature Granulocyte # (Auto) 0.0, Prothrombin Time 12.5, INR Comment 0.9, Activated Partial Thromboplast Time 28, Sodium Level 141, Potassium Level 3.5L, Chloride Level 102, Carbon Dioxide Level 21, Anion Gap 18H, Blood Urea Nitrogen 16, Creatinine 1.15, Estimat Glomerular Filtration Rate 81, BUN/Creatinine Ratio 14, Glucose Level 152H, Calcium Level 10.2H, Corrected Calcium , Magnesium Level 1.5L, Total Bilirubin 0.5, Aspartate Amino Transf (AST/SGOT) 43H, Alanine Aminotransferase (ALT/SGPT) 68H, Alkaline Phosphatase 66, Myoglobin 74.7, Troponin I < 0.028, Total Protein 8.2, Albumin 5.0H 04/28/22 21:47: Influenza Type A (RT-PCR) Not Detected, Influenza Type B (RT-PCR) Not Detected, SARS-CoV-2 RNA (RT-PCR) Not Detected 04/28/22 23:35: Troponin I < 0.028 04/29/22 05:16: White Blood Count 5.7, Red Blood Count 4.27L, Hemoglobin 13.6, Hematocrit 38L, Mean Corpuscular Volume 89, Mean Corpuscular Hemoglobin 32, Mean Corpuscular Hemoglobin Concent 36, Red Cell Distribution Width 12.6, Platelet Count 137, Mean Platelet Volume 10.6, Troponin I < 0.028, Triglycerides Level 464H, Cholesterol Level 176, LDL Cholesterol Direct 93, VLDL Cholesterol , HDL Cholesterol 27L Radiology NAME: BECKY FALCON [facility] REC#: [id number] PT STATUS: REG ER : 1980 PHYSICIAN: AINSLEY LEBRON MD ADMIT DATE: 04/28/22/ER Signed Date of Exam:04/28/22 CHEST 1 VIEW, AP/PA ONLY CLINICAL INDICATION: Patient with chest pain. EXAM: Portable chest x-ray upright view. COMPARISON: None. FINDINGS: Lungs/pleura: Lungs are clear. There is no pneumothorax. There is no pleural effusion. Mediastinum: Unremarkable. Pulmonary vasculature: Unremarkable. Heart: Unremarkable. Bones/extrathoracic soft tissue: Unremarkable. IMPRESSION: There is no radiographic evidence of acute cardiopulmonary process. Dictated by: Dictated on workstation # [id number] Dict: 04/28/222212 Trans: 04/28/222327 [facility] [id number] Interpreted by: LANETTE CAMARILLO MD Electronically signed by: LANETTE CAMARILLO MD 04/28/222327 ECG Impression ECG Initial ECG Rhythm: Normal Sinus A/P-Cardiology Assessment/Admission Diagnosis Chest pain of undetermined etiology HLD - statin which is managed by his PCP Family h/o CAD Heavy ETOH usage - cessation advised Reports h/o fatty liver - elevated liver enzymes Discussion and Recomendations Chest pain of undetermined etiology - no evidence of ACS - some features of unstable angina - Pt is concerned it is a cardiac cause - based on h/o, risk factors and symptoms we advise cardiac cath - we have discussed the procedure, risks, benefits of cardiac cath with potential ad hoc coronary intervention. He provides informed consent Echocardiogram today to eval structure and function Hold statin d/t liver enzyme elevation Monitor lab closely - Replace electrolytes as indicated Further recs will be based on his hospital course BERLIN DO Apr 29, 2022 08:55
[2022-04-29 09:04] LABS: HEMATOCRIT 38 % (40-54); HEMOGLOBIN 13.6 g/dL (13.3-17.7); MEAN CORPUSCULAR HEMOGLOBIN 32 pg (25-34); MEAN CORPUSCULAR HGB CONC 36 g/dL (32-36); MEAN CORPUSCULAR VOLUME 89 fL (80-99); MEAN PLATELET VOLUME 10.6 fL (9.0-12.2); PLATELET COUNT 137 10^3/uL (130-400); WHITE BLOOD COUNT 5.7 10^3/uL (4.3-11.0)
[2022-04-29] MEDS ORDERED: LIDOCAINE 1% INJ 20 ML VIAL ONE (09:04)
[2022-04-29] MEDS ORDERED: HEParin (CATH LAB) 2,000 ML IV ONE (09:04)
[2022-04-29] MEDS: NS IV 1000 ML 1,000 ML IV SCH ×2 (09:26→22:30)
--- NOTE | 2022-04-29 11:58 | History & Physical ---
BALTAZAR HAMILTON 04/29/22 1158: History of Present Illness History of Present Illness Reason for visit/HPI Sidney Falcon is a 41 yo M who presented to the ED with chest pain on 04/28. Pt was relaxing and watching TV when he noticed his chest hurt. Describes the pain as pressure, dull ache, and that someone has a knee on his chest. He felt his heart racing. Had a home blood pressure reading of 150/100. Pt admits to chest pain periodically throughout the last few months, nothing this severe. He was pain free this morning but admits to the return of pressure over the last few hours. 4/10 pain at worst last night. Pain does not/did not radiate to his arm or jaw. Date of Admission Apr 29, 2022 at 01:30 I consulted on this patient on 04/29/22 11:53 Attending Physician Araceli Canchola MD Admitting Physician Admitting Physician: Jesus Alberto Alves MD Attending Physician: Jesus Alberto Alves MD Consult Allergies and Home Medications Allergies Coded Allergies: No Known Drug Allergies (Verified , 01/12/20) Patient Home Medication List Home Medication List Reviewed: Yes Apixaban (Eliquis) 5 Mg Tablet, 10 MG PO BID Prescribed by: MOSHE PADRON on 02/06/20 1146 Cephalexin (Cephalexin) 500 Mg Capsule, 1 CAP PO TID Prescribed by: JAIMEE REYNOSO on 01/20/20 1031 Hydrocodone/Acetaminophen (Hydrocodone-Acetamin 5-325 mg) 1 Each Tablet, 1 EACH PO Q4H PRN for PAIN-MODERATE (5-7) Prescribed by: JAIMEE REYNOSO on 01/20/20 1031 Hydrocodone/Acetaminophen (Lorcet 5-325 mg Tablet) 1 Each Tablet, 1 EACH PO Q4- 6HR PRN for PAIN-MODERATE Prescribed by: MOSHE PADRON on 02/06/20 1149 Pantoprazole Sodium (Protonix) 40 Mg Tablet.dr, 40 MG PO DAILY Prescribed by: ROSI TRUJILLO on 07/26/19 1408 Past Eecqedy-Zxpamx-Lhcoqn Hx Patient Social History Tobacco Use?: Yes Tobacco type used: Cigarettes Smoking Status: Never a Smoker Smokeless Tobacco Frequency: Never a User Use of E-Cig and/or Vaping dev: No Substance use?: No Alcohol Use?: Yes Alcohol type: Hard Liquor Alcohol Frequency: Couple times a week Pt feels they are or have been: No Immunizations Up To Date Date of Influenza Vaccine: May 24, 2019 Tetanus Booster (TDap): More Than 5 Years PED Vaccines UTD: No Date of Pneumonia Vaccine: May 31, 2018 Seasonal Allergies Seasonal Allergies: Yes Current Status Advance Directives: Unable to obtain Communicates: Verbally Primary Language: Faroese Preferred Spoken Language: Faroese Is interpretation needed?: No Sensory deficits: Vision impairment Implanted or Applied Medical D: Orthopedic hardware Past Medical History Surgeries: Adenoidectomy, Appendectomy, Orthopedic, Tonsillectomy, Vasectomy Currently Using CPAP: No Currently Using BIPAP: No Hypertension Sexually Transmitted Disease: No HIV/AIDS: No Gastroesophageal Reflux Blood Disorders: No Adverse Reaction/Blood Tranf: No (N/A) Review of Systems Constitutional: no symptoms reported, diaphoresis; No fever EENTM: No hoarseness Respiratory: No cough, No wheezing Cardiovascular: chest pain, palpitations Gastrointestinal: No abdominal pain, No jaundice, No nausea, No vomiting Genitourinary: no symptoms reported; No incontinence, No pain Skin: no symptoms reported; No change in color Psychiatric/Neurological: Denies Headache, Denies Paresthesia Physical Exam Vital Signs Vital Signs - First Documented 04/28/22 04/29/22 04/29/22 20:55 01:45 01:56 Temp 36.7 Pulse 83 Resp 18 B/P (MAP) 163/119 (134) Pulse Ox 95 O2 Delivery Room Air Capillary Refill : Height, Weight, BMI Height: '" Weight: lbs. oz. kg; 28.31 BMI Method: General Appearance: No Apparent Distress, WD/WN Eyes: Bilateral Eye Normal Inspection HEENT: Moist Mucous Membranes; No Scleral Icterus (L), No Scleral Icterus (R) Neck: Full Range of Motion, Normal Inspection; No JVD Respiratory: Chest Non Tender, Lungs Clear, Normal Breath Sounds, No Accessory Muscle Use, No Respiratory Distress; No Pleural Rub, No Wheezing Cardiovascular: Regular Rate, Rhythm, No Edema, No Gallop, No JVD, No Murmur, Normal Peripheral Pulses Gastrointestinal: Normal Bowel Sounds, No Organomegaly, No Pulsatile Mass, Non Tender, Soft; No Mass Rectal: Deferred Back: Normal Inspection, No Vertebral Tenderness Extremity: Normal Capillary Refill, Normal Inspection, Non Tender Neurologic/Psychiatric: Alert, No Motor/Sensory Deficits, Normal Mood/Affect Skin: Normal Color, Warm/Dry, Diaphoresis (sweat before arrival to ED, None this morning) Lymphatic: No Adenopathy Assessment/Plan Assessment and Plan Vicente- Sidney Falcon is a 41 yo M with chest pain. ECG and Troponins were negative Heart cath planned for today due to persistent pain Dyslipidemia- pt recently started statin therapy, follow up outpatient AST/ ALT elevation likely due to drinking this weekend HTN- consider keeping pt on metoprolol for HTN Admission Diagnosis Admission Status: Observation Copy Copies To 1: ARACELI CANCHOLA MD, KATELYN M MD 04/29/22 1400: Allergies and Home Medications Allergies Coded Allergies: No Known Drug Allergies (Verified , 01/12/20) Patient Home Medication List Apixaban (Eliquis) 5 Mg Tablet, 10 MG PO BID Prescribed by: MOSHE PADRON on 02/06/20 1146 Cephalexin (Cephalexin) 500 Mg Capsule, 1 CAP PO TID Prescribed by: JAIMEE REYNOSO on 01/20/20 1031 Hydrocodone/Acetaminophen (Hydrocodone-Acetamin 5-325 mg) 1 Each Tablet, 1 EACH PO Q4H PRN for PAIN-MODERATE (5-7) Prescribed by: JAIMEE REYNOSO on 01/20/20 1031 Hydrocodone/Acetaminophen (Lorcet 5-325 mg Tablet) 1 Each Tablet, 1 EACH PO Q4- 6HR PRN for PAIN-MODERATE Prescribed by: MOSHE PADRON on 02/06/20 1149 Pantoprazole Sodium (Protonix) 40 Mg Tablet.dr, 40 MG PO DAILY Prescribed by: ROSI TRUJILLO on 07/26/19 1408 Assessment/Plan Assessment and Plan Patient is a 41-year-old male with past medical history of untreated hypertension and newly diagnosed hyperlipidemia who presented to the emergency department due to chest pain. This started at rest while he was watching TV. He rated it a 4 out of 10. He decided to check his blood pressure and it was 150/100 at home and he thought he was having palpitations. He continued to have chest pressure so decided to seek evaluation in the emergency department. He denies any nausea or vomiting. He did notice diaphoresis with this though. He was found to have negative troponins but given symptomatology was admitted for observation. Cardiology has been consulted. He does have recurrent chest pain this morning and cardiology elected to proceed with cardiac cath. We will await results of cardiac cath but optimize treatment of his blood pressure and hyperlipidemia while admitted. Problems: (1) Hyperlipidemia Qualifiers: Qualified Codes: E78.1 - Pure hyperglyceridemia (2) Chest pain Status: Acute Qualifiers: Qualified Codes: R07.9 - Chest pain, unspecified (3) Hypertension Status: Acute Qualifiers: Qualified Codes: I10 - Essential (primary) hypertension (4) Palpitations Status: Acute (5) Hypomagnesemia Status: Acute Copy Copies To 1: ARACELI CANCHOLA MD Supervisory-Addendum Brief Verification & Attestation Participated in pt care: history, MDM, physical Personally performed: exam, history, MDM, supervision of care Care discussed with: Medical Student Procedures: n/a Results interpretation: Verified all documentation Verification and Attestation of Medical Student E/M Service A medical student performed and documented this service in my presence. I reviewed and verified all information documented by the medical student and made modifications to such information, when appropriate. I personally performed the physical exam and medical decision making. Crissy Brooks, Apr 29, 2022,13:58 BALTAZAR HAMILTON Apr 29, 2022 11:58 CRISSY BROOKS MD Apr 29, 2022 14:00
[2022-04-29] MEDS ORDERED: MIDAZOLAM 5 MG/5 ML (VERSED) VIAL ONE (12:20)
[2022-04-29] MEDS ORDERED: fentaNYL INJ 100 MCG/2 ML AMP ONE (12:20)
[2022-04-29] MEDS ORDERED: PATIENT MAY USE OWN MEDS, ALL PO SCH (13:15)
[2022-04-29] MEDS ORDERED: MAGNESIUM 1 GM/100 ML IVPB 100 ML IV NR (13:30)
--- NOTE | 2022-04-29 13:57 | Consultation-Cardiology ---
HPI-Cardiology Cardiology Consultation: Date of Consultation 04/29/22 Time Seen by a Provider: 12:45 Date of Admission Attending Physician Araceli Canchola MD Admitting Physician Admitting Physician: Jesus Alberto Alves MD Attending Physician: Jesus Alberto Alves MD Consulting Physician AVRIL SUAREZ MD, MA, FACP, FACC, [facility], CCDS HPI: Chief Complaint: Chest pain Mr. Falcon is a 41 yr old male admitted to [facility] from the ED with c/o CP. He reports he has had episodes of mid-sternal chest pressure, squeezing without radiation for the last several months. Typically the episodes last 20-30 minutes. It is a constant discomfort that gradually eases. Episodes occur at rest. No associated symptoms. Last night he was lying in bed when he developed chest pain as before, but reports it lasted for several hours; he is reporting mild continued discomfort this morning. Activity does not make it any worse. He states the episode last night he had diaphoresis and SOB, He reports his signif other checked his BP and noted it was high as well as his pulse being high (90's). He denies any n/v/d. No c/o fever or chills. No c/o syncope or near syncope. No LE swelling. He states he drinks heavily 2-3 times a week. He does NOT smoke. Review of Systems-Cardiology Review of Systems Constitutional: No chills, No fever, No malaise Eyes: No vision change Ears/Nose/Throat: No epistaxis, No recent hearing loss Respiratory: As described under HPI Cardiovascular: As described under HPI Gastrointestinal: As described under HPI Genitourinary: No dysuria, No hematuria Skin: No rash on exposed areas, No ulcerations on exposed areas Psychiatric/Neurological: No anxiety, No depression, No seizure, No focal weakness, No syncope Hematologic: No bleeding abnormalities REW-Zyfyhx-Wxmsmt Hx Patient Social History Smoking Status: Never a Smoker 2nd Hand Smoke Exposure: No Have you traveled recently?: No Alcohol Use?: Yes Pt feels they are or have been: No Tobacco type used: Cigarettes Immunizations Up To Date Date of Pneumonia Vaccine: May 31, 2018 Date of Influenza Vaccine: May 24, 2019 Past Medical History PMH As described under Assessment. Family Medical History Family Medical History: He reports his mother has an "arrhythmia" which was dx in her 50's. He reports his father has HTN and h/o CVA. Allergies and Home Medications Allergies Coded Allergies: No Known Drug Allergies (Verified , 01/12/20) Patient Home Medication List Home Medication List Reviewed: Yes Apixaban (Eliquis) 5 Mg Tablet, 10 MG PO BID Prescribed by: MOSHE PADRON on 02/06/20 1146 Cephalexin (Cephalexin) 500 Mg Capsule, 1 CAP PO TID Prescribed by: JAIMEE REYNOSO on 01/20/20 1031 Hydrocodone/Acetaminophen (Hydrocodone-Acetamin 5-325 mg) 1 Each Tablet, 1 EACH PO Q4H PRN for PAIN-MODERATE (5-7) Prescribed by: JAIMEE REYNOSO on 01/20/20 1031 Hydrocodone/Acetaminophen (Lorcet 5-325 mg Tablet) 1 Each Tablet, 1 EACH PO Q4- 6HR PRN for PAIN-MODERATE Prescribed by: MOSHE PADRON on 02/06/20 1149 Pantoprazole Sodium (Protonix) 40 Mg Tablet.dr, 40 MG PO DAILY Prescribed by: ROSI TRUJILLO on 07/26/19 1408 Physical Exam-Cardiology Physical Exam Vital Signs/I&O 04/29/22 04/29/22 04/29/22 04/29/22 01:56 02:15 02:30 02:45 Temp 36.5 Pulse 70 60 56 71 Resp 22 20 20 20 B/P (MAP) 138/90 (106) 133/90 (104) 136/91 (106) 128/85 (99) Pulse Ox 95 96 97 96 O2 Delivery Room Air Room Air Room Air Room Air 04/29/22 04/29/22 04/29/22 04/29/22 03:00 03:21 04:00 05:00 Temp 36.2 Pulse 58 60 81 66 Resp 20 20 20 B/P (MAP) 139/93 (108) 146/88 (107) 141/98 (112) Pulse Ox 95 95 95 O2 Delivery Room Air Room Air Room Air 04/29/22 04/29/22 04/29/22 04/29/22 06:00 07:21 07:55 08:00 Temp 36.4 Pulse 71 65 59 Resp 20 18 B/P (MAP) 124/81 (95) 130/90 (103) Pulse Ox 98 96 O2 Delivery Room Air Room Air Room Air 04/29/22 04/29/22 11:22 13:44 Temp 36.6 Pulse 56 53 Resp 18 B/P (MAP) 134/88 (103) Pulse Ox 98 O2 Delivery Room Air Capillary Refill : Less Than 3 Seconds Constitutional: AAO x 3, well-developed, well-nourished HEENT: PERRL, hearing is well preserved, oral hygience is good Neck: No carotid bruit; carotid pulses are 2 + bilaterally Respiratory: No accessory muscle use, No respiratory distress; chest expansion is symmetric, chest is bilaterally symmetric, lungs clear to auscultation Cardiovascular: regular rate-rhythm, S1 and S2 Gastrointestinal: No tender; soft, round, audible bowel sounds Extremities: no lower extremity edema bilateral Neurologic/Psychiatric: grossly intact Skin: No rash on exposed areas, No ulcerations on exposed areas Data Review Labs Laboratory Tests 04/28/22 20:58: White Blood Count 8.2, Red Blood Count 4.72, Hemoglobin 15.4, Hematocrit 42, Mean Corpuscular Volume 89, Mean Corpuscular Hemoglobin 33, Mean Corpuscular Hemoglobin Concent 37H, Red Cell Distribution Width 12.4, Platelet Count 179, Mean Platelet Volume 10.3, Immature Granulocyte % (Auto) 1, Neutrophils (%) (Auto) 40L, Lymphocytes (%) (Auto) 48H, Monocytes (%) (Auto) 8, Eosinophils (%) (Auto) 3, Basophils (%) (Auto) 0, Neutrophils # (Auto) 3.3, Lymphocytes # (Auto) 4.0, Monocytes # (Auto) 0.7, Eosinophils # (Auto) 0.2, Basophils # (Auto) 0.0, Immature Granulocyte # (Auto) 0.0, Prothrombin Time 12.5, INR Comment 0.9, Activated Partial Thromboplast Time 28, Sodium Level 141, Potassium Level 3.5L, Chloride Level 102, Carbon Dioxide Level 21, Anion Gap 18H, Blood Urea Nitrogen 16, Creatinine 1.15, Estimat Glomerular Filtration Rate 81, BUN/Creatinine Ratio 14, Glucose Level 152H, Calcium Level 10.2H, Corrected Calcium , Magnesium Level 1.5L, Total Bilirubin 0.5, Aspartate Amino Transf (AST/SGOT) 43H, Alanine Aminotransferase (ALT/SGPT) 68H, Alkaline Phosphatase 66, Myoglobin 74.7, Troponin I < 0.028, Total Protein 8.2, Albumin 5.0H 04/28/22 21:47: Influenza Type A (RT-PCR) Not Detected, Influenza Type B (RT-PCR) Not Detected, SARS-CoV-2 RNA (RT-PCR) Not Detected 04/28/22 23:35: Troponin I < 0.028 04/29/22 05:16: White Blood Count 5.7, Red Blood Count 4.27L, Hemoglobin 13.6, Hematocrit 38L, Mean Corpuscular Volume 89, Mean Corpuscular Hemoglobin 32, Mean Corpuscular Hemoglobin Concent 36, Red Cell Distribution Width 12.6, Platelet Count 137, Mean Platelet Volume 10.6, Troponin I < 0.028, Triglycerides Level 464H, Cholesterol Level 176, LDL Cholesterol Direct 93, VLDL Cholesterol , HDL Cholesterol 27L A/P-Cardiology Assessment/Admission Diagnosis Chest pain of undetermined etiology - card cath on 04/29/22: L cors ok, codominant RCA with 30-40% mid-vessel stenosis, LVEDP 18 mmHg, LVEF 50% HLD - statin which is managed by his PCP Family h/o CAD Heavy ETOH usage - cessation advised Reports h/o fatty liver - elevated liver enzymes Discussion and Recomendations * Advised complete avoidance of alcohol and tobacco use * BB for bp control * ASA 81 daily * Advised statin therapy if possible. Advised to confer with his attending/pcp for feasibility of statin therapy (given mild elevation of transaminases at baseline) * Replenish lytes * Monitor labs * I answered his CV-related question in detail AVRIL SUAREZ MD FACP [facility] CCDS Apr 29, 2022 13:57
--- NOTE | 2022-04-29 14:02 | CARDIAC CATHETERIZATION ---
DATE OF SERVICE: 04/29/2022 CARDIAC CATHETERIZATION REPORT The patient is a 41-year-old man who was admitted with chest discomfort with some features suggestive of unstable angina. He also himself was very concerned about the possibility of coronary artery disease. He requested cardiac catheterization. This appeared reasonable to do. We proceeded after having obtained an informed consent. DESCRIPTION OF PROCEDURE: He was brought to the cardiac catheterization laboratory. Right groin was prepared and draped in the usual sterile fashion. Lidocaine 1% was used for local anesthesia. Modified Seldinger technique was used to advance a 5-[place] sheath in right femoral artery, 5-[place] JL4 catheter was used for left coronary angiography, 5-[place] JR4 catheter for right coronary angiography, 5-[place] pigtail catheter was used for left heart catheterization and left ventricular angiography. At the end of the procedure, Mynx was used to achieve hemostasis after angiography of the right femoral artery had been carried out. He tolerated the procedure well. HEMODYNAMICS: Left ventricular end-diastolic pressure following coronary angiography was 18 mmHg. There was no significant pressure gradient on pullback across the aortic valve. CORONARY ANGIOGRAPHY: Left main coronary artery, left anterior descending and left circumflex artery are free of angiographically significant disease. Left circumflex artery is codominant with the right coronary artery. Right coronary artery exhibits 30% to 40% mid vessel stenosis. Left ventricular angiography: Left ventricular angiography was carried out in the right anterior oblique projection. Global left ventricular systolic function appears to be at the lower limit of normal. Ejection fraction approximately 50%. CONCLUSIONS: 1. Mild coronary artery disease consisting of 30% to 40% mid vessel stenosis of codominant right coronary artery. 2. Well preserved global left ventricular systolic function with ejection fraction approximately 50%. 3. Mild elevation of left ventricular end-diastolic pressure. DISCUSSION AND RECOMMENDATIONS: We have advised him to completely avoid alcohol and tobacco use. For coronary artery disease, we have recommended aspirin 81 mg a day and statin therapy. He exhibits mild elevation of transaminases. We have advised that he check with his attending physician to see if it would be reasonable to proceed with statin therapy. If so, we recommend close followup on hepatic, renal and lipid profiles. We will also recommend therapy with beta blockers. If blood pressure remains uncontrolled, consideration should be given to adding CODY inhibitors or angiotensin receptor blockers. Job ID: [id number] DocumentID: [id number] Dictated Date: 04/29/2022 13:53:01 Clockmaker Date: 04/29/2022 14:01:54 Dictated By: AVRIL SUAREZ MD, MA, FACP, FACC,
[2022-04-29] MEDS ORDERED: VALA10007 PO (14:29)
[2022-04-29] MEDS ORDERED: IBUP-2473 PO (14:29)
[2022-04-29] MEDS ORDERED: ESOM20CA37 PO (14:29)
[2022-04-29] MEDS ORDERED: ENOXAPARIN 100 MG/1 ML (LOVENOX) SYR SC SCH (18:00)
[2022-04-30] VITALS: BP 134/81
[2022-04-30 04:00] VITALS: BP 141/81
[2022-04-30 05:58] LABS: EOSINOPHILS # (AUTO) 0.2 10^3/uL (0.0-0.3)
[2022-04-30 06:00] LABS: BASOPHILS % (AUTO) 0 % (0-10); EOSINOPHILS % (AUTO) 4 % (0-10); HEMATOCRIT 36 % (40-54); HEMOGLOBIN 12.8 g/dL (13.3-17.7); LYMPHOCYTES % (AUTO) 38 % (12-44); MEAN CORPUSCULAR HEMOGLOBIN 32 pg (25-34); MEAN CORPUSCULAR HGB CONC 36 g/dL (32-36); MEAN CORPUSCULAR VOLUME 88 fL (80-99); MONOCYTES # (AUTO) 0.5 10^3/uL (0.0-1.0); MONOCYTES % (AUTO) 10 % (0-12); NEUTROPHILS # (AUTO) 2.6 10^3/uL (1.8-7.8); NEUTROPHILS % (AUTO) 49 % (42-75); PLATELET COUNT 119 10^3/uL (130-400); WHITE BLOOD COUNT 5.3 10^3/uL (4.3-11.0)
[2022-04-30 06:14] LABS: CALCIUM 8.9 MG/DL (8.5-10.1)
[2022-04-30 06:15] LABS: TOTAL PROTEIN 5.9 GM/DL (6.4-8.2)
[2022-04-30 06:17] LABS: BILIRUBIN,TOTAL 0.6 MG/DL (0.1-1.0)
[2022-04-30 06:19] LABS: CREATININE SERUM 0.93 MG/DL (0.60-1.30)
[2022-04-30 06:22] LABS: MAGNESIUM 1.8 MG/DL (1.6-2.4)
[2022-04-30 08:00] VITALS: BP 141/89
[2022-04-30] MEDS: meTOproloL SUCCINATE 50 MG (TOPROL XL) TAB PO SCH (08:08)
[2022-04-30] MEDS: PANTOPRAZOLE 40 MG (PROTONIX) VIAL IV SCH (08:08)
[2022-04-30] MEDS: ASPIRIN E.C. 81 MG (ECOTRIN) TAB PO SCH (08:08)
[2022-04-30] MEDS ORDERED: NON-FORMULARY MEDICATION 1 EA EA (Esomeprazole Magnesium 20 MG) PO SCH (09:00)
[2022-04-30] MEDS ORDERED: ASPI-1238 PO (09:23)
[2022-04-30] MEDS ORDERED: METO50TA7 PO (09:23)
[2022-04-30] MEDS ORDERED: EZET10TA49 PO (09:31)
--- NOTE | 2022-04-30 09:36 | Discharge Inst-Simple/Standard ---
Discharge Inst-Standard Discharge Medications New, Converted or Re-Newed RX: Transmitted to Pharmacy Patient Instructions/Follow Up Plan of Care/Instructions/FU: Please continue to take your medications Activity as Tolerated: Yes Discharge Diet: Cardiac Diet Return to The Hospital For: Chest pain, shortness of breath, fever, weakness, if you feel you are getting worse. CRISSY MEDEL MD Apr 30, 2022 09:36
--- NOTE | 2022-04-30 09:37 | Discharge Summary ---
Diagnosis/Chief Complaint Date of Admission Apr 29, 2022 at 01:30 Date of Discharge Discharge Date: Apr 30, 2022 Primary Care Araceli Canchola MD Discharge Diagnosis (1) Hyperlipidemia (2) Chest pain Status: Acute (3) Hypertension Status: Acute (4) Palpitations Status: Acute (5) Hypomagnesemia Status: Acute Discharge Summary Discharge Physical Exam Allergies: Coded Allergies: No Known Drug Allergies (Verified , 01/12/20) Vitals & I&Os Vital Signs Date Time Temp Pulse Resp B/P (MAP) Pulse Ox O2 Delivery O2 Flow Rate FiO2 04/30/22 08:17 97 Room Air 04/30/22 08:00 36.3 60 18 141/89 (106) Hospital Course Patient is a 41-year-old male who was admitted to the hospital secondary to chest pain. He underwent cardiac cath due to ongoing chest pain which revealed mild coronary artery disease and an EF of 50%. Lipid panel revealed hypertriglyceridemia and he was started on Zetia. Statins were avoided at this time due to his elevated liver enzymes and known history of fatty liver disease. He was advised to continue on an aspirin as well. He has follow-up with Dr. Benz and with his primary care provider to follow-up this hospital stay. It was recommended that he quit drinking alcohol and using tobacco. Labs (last 24 hrs) Laboratory Tests 04/30/22 05:48: White Blood Count 5.3, Red Blood Count 4.04L, Hemoglobin 12.8L, Hematocrit 36L, Mean Corpuscular Volume 88, Mean Corpuscular Hemoglobin 32, Mean Corpuscular Hemoglobin Concent 36, Red Cell Distribution Width 12.3, Platelet Count 119L, Mean Platelet Volume 10.0, Immature Granulocyte % (Auto) 0, Neutrophils (%) (Auto) 49, Lymphocytes (%) (Auto) 38, Monocytes (%) (Auto) 10, Eosinophils (%) (Auto) 4, Basophils (%) (Auto) 0, Neutrophils # (Auto) 2.6, Lymphocytes # (Auto) 2.0, Monocytes # (Auto) 0.5, Eosinophils # (Auto) 0.2, Basophils # (Auto) 0.0, Immature Granulocyte # (Auto) 0.0, Percent Immature Platelet Fraction 2.9, Sodium Level 140, Potassium Level 4.0, Chloride Level 107, Carbon Dioxide Level 22, Anion Gap 11, Blood Urea Nitrogen 12, Creatinine 0.93, Estimat Glomerular Filtration Rate 105, BUN/Creatinine Ratio 13, Glucose Level 95, Calcium Level 8.9, Corrected Calcium 8.9, Magnesium Level 1.8, Total Bilirubin 0.6, Aspartate Amino Transf (AST/SGOT) 38H, Alanine Aminotransferase (ALT/SGPT) 67H, Alkaline Phosphatase 48, Total Protein 5.9L, Albumin 4.0 Patient resulted labs reviewed. Pending Labs Laboratory Tests 04/30/22 05:48: White Blood Count 5.3, Red Blood Count 4.04, Hemoglobin 12.8, Hematocrit 36, Mean Corpuscular Volume 88, Mean Corpuscular Hemoglobin 32, Mean Corpuscular Hemoglobin Concent 36, Red Cell Distribution Width 12.3, Platelet Count 119, Mean Platelet Volume 10.0, Immature Granulocyte % (Auto) 0, Neutrophils (%) (A uto) 49, Lymphocytes (%) (Auto) 38, Monocytes (%) (Auto) 10, Eosinophils (%) (Auto) 4, Basophils (%) (Auto) 0, Neutrophils # (Auto) 2.6, Lymphocytes # (Auto) 2.0, Monocytes # (Auto) 0.5, Eosinophils # (Auto) 0.2, Basophils # (Auto) 0.0, Immature Granulocyte # (Auto) 0.0, Percent Immature Platelet Fraction 2.9, Sodium Level 140, Potassium Level 4.0, Chloride Level 107, Carbon Dioxide Level 22, Anion Gap 11, Blood Urea Nitrogen 12, Creatinine 0.93, Estimat Glomerular Filtration Rate 105, BUN/Creatinine Ratio 13, Glucose Level 95, Calcium Level 8.9, Corrected Calcium 8.9, Magnesium Level 1.8, Total Bilirubin 0.6, Aspartate Amino Transf (AST/SGOT) 38, Alanine Aminotransferase (ALT/SGPT) 67, Alkaline Phosphatase 48, Total Protein 5.9, Albumin 4.0 Discussion & Recommendations Discharge Planning: >30 minutes discharge planning Discharge Home Medications: Active Scripts Active Ezetimibe 10 Mg Tablet 10 Mg PO DAILY Metoprolol Succinate 50 Mg Tab.er.24h 50 Mg PO DAILY Aspirin EC (Aspirin) 81 Mg Tablet.dr 81 Mg PO DAILY Reported Ibuprofen 200 Mg Tablet 600 Mg PO Q6H PRN Valacyclovir (Valacyclovir HCl) 1,000 Mg Tablet 1,000 Mg PO Q48H Esomeprazole Magnesium 20 Mg Capsule.dr 20 Mg PO DAILY Instructions to patient/family Please see electronic discharge instructions given to patient. Clinical Quality Measures Admission Status Admission Dx Patient is a 41-year-old male with past medical history of untreated hypertension and newly diagnosed hyperlipidemia who presented to the emergency department due to chest pain. This started at rest while he was watching TV. He rated it a 4 out of 10. He decided to check his blood pressure and it was 150/100 at home and he thought he was having palpitations. He continued to have chest pressure so decided to seek evaluation in the emergency department. He denies any nausea or vomiting. He did notice diaphoresis with this though. He was found to have negative troponins but given symptomatology was admitted for observation. Cardiology has been consulted. He does have recurrent chest pain this morning and cardiology elected to proceed with cardiac cath. We will await results of cardiac cath but optimize treatment of his blood pressure and hyperlipidemia while admitted. Problem Qualifiers (1) Hyperlipidemia: Hyperlipidemia type: pure hypertriglyceridemia Qualified Codes: E78.1 - Pure hyperglyceridemia (2) Chest pain: Chest pain type: unspecified Qualified Codes: R07.9 - Chest pain, unspecified (3) Hypertension: Hypertension type: unspecified Qualified Codes: I10 - Essential (primary) hypertension CRISSY MEDEL MD Apr 30, 2022 09:37
[2022-04-30 10:35] VITALS: BP 141/89
--- NOTE | 2022-04-30 12:52 | Conscious Sedation/ASA ---
04/30/22 1252: Conscious Sedation Pre-Proced ASA Score For ASA 3 and 4: Consider anesthesia and medical clearance. Also, for patients with a history of failed moderate sedation consider anesthesia. Airway Lungs Heart ASA score ASA 1: a normal healthy patient ASA 2: a patient with a mild systemic disease (mid diabetes, controlled hypertension, obesity ASA 3: a patient with a severe systemic disease that limits activity (angina, COPD, prior Myocardial infarction) ASA 4: a patient with an incapacitating disease that is a constant threat to life (CHF, renal failure) ASA 5: a moribund patient not expected to survive 24 hrs. (ruptured aneurysm) ASA 6: a declared brain- patient whose organs are being harvested. For emergent operations, add the letter E after the classification Sedation Plan The patient is an appropriate candidate to undergo the planned procedure, sedation, and anesthesia. The patient immediately re-assessed prior to indication. AVRIL SUAREZ MD [facility] 04/30/22 1702: Conscious Sedation Pre-Proced Time 10:00 ASA Score 3 Mallampati Classification Grade 2 Sedation Plan Analgesia, Amnesia, Plan communicated to team members Apr 30, 2022 12:52 AVRIL SUAREZ MD [facility] Apr 30, 2022 17:02
--- NOTE | 2022-04-30 16:40 | Progress Note - Cardiology ---
Cardiology SOAP Progress Note Subjective: No cp or palp or syncope No groin or leg discomfort No focal weakness No n/v/d Objective: I&O/Vital Signs 04/30/22 04/30/22 04/30/22 04/30/22 07:19 08:00 08:17 10:35 Temp 36.3 36.3 Pulse 62 60 60 Resp 18 18 B/P (MAP) 141/89 (106) 141/89 Pulse Ox 96 97 97 O2 Delivery Room Air Room Air Room Air 04/30/22 00:00 Intake Total 1760 ml Balance 1760 ml Constitutional: AAO x 3, well-developed, well-nourished Respiratory: No accessory muscle use, No respiratory distress; chest expansion is symmetric, chest is bilaterally symmetric, lungs clear to auscultation Cardiovascular: regular rate-rhythm, S1 and S2 Gastrointestional: No tender; soft, round, audible bowel sounds Extremities: no lower extremity edema bilateral Neurologic/Psychiatric: grossly intact Skin: No rash on exposed areas, No ulcerations on exposed areas Results/Procedures: Labs Laboratory Tests 04/30/22 05:48: White Blood Count 5.3, Red Blood Count 4.04L, Hemoglobin 12.8L, Hematocrit 36L, Mean Corpuscular Volume 88, Mean Corpuscular Hemoglobin 32, Mean Corpuscular Hemoglobin Concent 36, Red Cell Distribution Width 12.3, Platelet Count 119L, Mean Platelet Volume 10.0, Immature Granulocyte % (Auto) 0, Neutrophils (%) (Auto) 49, Lymphocytes (%) (Auto) 38, Monocytes (%) (Auto) 10, Eosinophils (%) (Auto) 4, Basophils (%) (Auto) 0, Neutrophils # (Auto) 2.6, Lymphocytes # (Auto) 2.0, Monocytes # (Auto) 0.5, Eosinophils # (Auto) 0.2, Basophils # (Auto) 0.0, Immature Granulocyte # (Auto) 0.0, Percent Immature Platelet Fraction 2.9, Sodium Level 140, Potassium Level 4.0, Chloride Level 107, Carbon Dioxide Level 22, Anion Gap 11, Blood Urea Nitrogen 12, Creatinine 0.93, Estimat Glomerular Filtration Rate 105, BUN/Creatinine Ratio 13, Glucose Level 95, Calcium Level 8.9, Corrected Calcium 8.9, Magnesium Level 1.8, Total Bilirubin 0.6, Aspartate Amino Transf (AST/SGOT) 38H, Alanine Aminotransferase (ALT/SGPT) 67H, Alkaline Phosphatase 48, Total Protein 5.9L, Albumin 4.0 Laboratory Tests 04/28/22 20:58 04/29/22 05:16 04/30/22 05:48 A/P: Assessment: Chest pain of undetermined etiology - card cath on 04/29/22: L cors ok, codominant RCA with 30-40% mid-vessel stenosis, LVEDP 18 mmHg, LVEF 50% HLD - statin which is managed by his PCP Family h/o CAD Heavy ETOH usage - cessation advised Reports h/o fatty liver - elevated liver enzymes Plan: * Advised complete avoidance of alcohol and tobacco use * BB for bp control * ASA 81 daily * Advised statin therapy if possible. Advised to confer with his attending/pcp for feasibility of statin therapy (given mild elevation of transaminases at baseline) * Outpt f/u advised * I answered his CV-related question in detail AVRIL SUAREZ MD FACP FAC [facility] Apr 30, 2022 16:40
== END 2022-04-30 10:35 | disposition home or self-care (01) ==
LOC: EDUNIT# 20:52 → ER 20:54 → 4TH 20:55 → EDLOC 04-29 01:30 → UNDOADMOB 04-29 01:30 → INTOOBSV 04-29 01:30 → UNDODISOB 04-30 10:35
PROVIDERS: ADMIT Internal Medicine; ATTEND Internal Medicine
DX: I25.10 Atherosclerotic heart disease of native coronary artery without angina pectoris (principal); E78.5 Hyperlipidemia, unspecified; I10 Essential (primary) hypertension; E83.42 Hypomagnesemia
CPT/HCPCS: 71045; 80053 ×2; 80061; 83735 ×2; 83874; 84484 ×2; 85025 ×2; 85027; 85610; 85730; 87636; 93005 ×3; 93041; 93306; 93458; 96361; 96366; 96376 ×2; 99284; C1760; C1894; G0378; 36415